=== PATIENT | female | born 1940 | race Caucasian/White ===

== ENCOUNTER → 2018-08-15 | Outpatient (CLI) | payer OTHER ==
[~2018-08-15] VITALS: Ht 157.5 cm; Wt 59.9 kg
[~2018-08-15] MED LIST: BUTRANS1 EAC1 TD; CARTIA XT180 M1 PO; CEFUROXIME250 MG PO; COUMADIN 5 MG TA5 M1 PO; COZAAR 50 MG TA50 M2 PO; ENOXAPARIN80 MG/0.8 SUBQ; FLOMAX0.4 MG PO; KEFLEX500 M1 PO; LOSARTAN POTAS100 MG PO; NORVASC2.5 MG PO; OMEPRAZOLE 20 M20 M1 PO; PAIN & FEVER325 MG PO; PERCOCET 5-3251 EACH PO; PRILOSEC 20 MG20 MG PO; PROTONIX40 M1 PO; REQUIP 0.25 M0.25 MG PO; TOPROL XL25 MG PO; TOPROL XL50 MG PO; TRAMADOL 50 MG50 MG PO; VITAMIN B-12100 MC1 PO; XARELTO20 MG PO; ZANAFLEX4 MG PO; ZANTAC 150MG T150 M1 PO
--- NOTE | ~2018-08-15 | PATH ---
[facility] [address] [place] [address] PATHOLOGY RPT PROCEDURE Name: BEBEJUANCHOSHANNON HIDALGO Room #: REG ELENITA Blanchard#: [id number] Admission: 08/15/18 Date of : 42 Discharge: Report #: [id number] Path Case #: [id number] [facility] Accession Number: [id number] . 01 Material submitted: . DISTAL ESOPHAGUS BX R/O COOK'S . 01 Clinical history: . Pre-op diagnosis: History of severe esophagitis Post-op diagnosis: Hiatal hernia R/O Cook's . 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 - There is no evidence of dysplasia or malignancy. (SHA:kala; 08/17/2018) QMS/08/17/2018 . 02 Electronically signed: . Alfredo Reaves MD, Pathologist NPI- [id number] . 01 Gross description: . The specimen is received in formalin, labeled "Shannon Reddy, distal esophagus biopsy, R/O Cook's". Received are two segments of pale menjivar soft tissue measuring 0.2 and 0.3 cm in maximum dimensions. The specimen is submitted entirely in cassette A1. (CAA; 08/16/2018) QAC/QAC . 02 Pathologist provided ICD-10: K22.70, K20.9 . 02 CPT . 892481 Specimen Comment: A courtesy copy of this report has been sent to Specimen Comment: [phone], . Specimen Comment: Report sent to / DR WADE Performed at: 01 [place] [id number] [id number] MD Homer Ferrara MD Phone: [phone] Performed at: [address] [id number] [address] [address] PATHOLOGY RPT PROCEDURE Name: SHANNON REDDY Room #: REG ELENITA Blanchard#: [id number] Admission: 08/15/18 Date of : 42 Discharge: Report #: [id number] Path Case #: [id number] MD Page Bansal MD Phone: [phone]
== END | disposition home or self-care (01) ==
LOC: GI 07:21
DX: K21.0 Gastro-esophageal reflux disease with esophagitis (principal); K22.8 Other specified diseases of esophagus; K44.9 Diaphragmatic hernia without obstruction or gangrene; I10 Essential (primary) hypertension; N28.89 Other specified disorders of kidney and ureter; Z90.710 Acquired absence of both cervix and uterus; Z85.41 Personal history of malignant neoplasm of cervix uteri; Z98.890 Other specified postprocedural states; Z90.49 Acquired absence of other specified parts of digestive tract; Z86.718 Personal history of other venous thrombosis and embolism; Z79.899 Other long term (current) drug therapy; Z90.89 Acquired absence of other organs
CPT/HCPCS: 62110; 62900